=== PATIENT | female | born 2000 | race Caucasian/White ===

== ENCOUNTER 2020-08-15 15:01 | Outpatient (CLI) | payer BC, SELFPAY ==
--- NOTE | ~2020-08-15 | US_ITS ---
EXAMINATION: US pelvic complete w TV DATE: 08/15/2020 15:45 INDICATION: Pelvic pain. Comparison:No prior studies for comparison. TECHNIQUE: Multiple transabdominal and endovaginal sonographic images of the pelvis performed. FINDINGS: The uterus measures 7.8 x 2.8 x 5.3 cm. IUD is in expected position in the endometrium. The endometrial complex measures 6.5 mm. The right ovary measures 2.3 x 3.6 x 2.3 cm and the left ovary measures 3.6 x 2 x 2.3 cm. There are small follicles in each ovary. Normal doppler signal in both ovaries. There is no free fluid in the pelvis. There are no abnormal masses seen on either side. IMPRESSION: 1. Unremarkable pelvic ultrasound. IUD in expected position. Reviewed, dictated and finalized at location B.
== END 2020-08-15 15:02 | disposition home or self-care (01) ==
PROVIDERS: PCP Physician Assistant; Visit Provider Physician Assistant
DX: N80.9 Endometriosis, unspecified (principal); Z97.5 Presence of (intrauterine) contraceptive device
CPT/HCPCS: 76830; 76856